=== PATIENT | female | born 1975 | race Caucasian/White ===

== ENCOUNTER 2018-09-13 10:05 | Emergency (ER) | payer MEDICARE ==
[~2018-09-13] VITALS: Ht 157.5 cm; Wt 63.5 kg
[2018-09-13] MEDS ORDERED: SODIUM CHLORIDE 0.9% 1000ML 1,000 ML IV STA (10:24)
[2018-09-13] MEDS ORDERED: KETOROLAC TROMETHAMINE 30 MG/ML VIAL IV STA (10:24)
[2018-09-13] MEDS ORDERED: DIPHENHYDRAMINE HCL INJ 50 MG/ML VIAL IV ONE (10:30)
[2018-09-13] MEDS ORDERED: CLONIDINE HCL 0.1 MG TAB PO ONE (10:30)
[2018-09-13] MEDS ORDERED: METOCLOPRAMIDE HCL 10 MG/2ML VIAL IV ONE (10:30)
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
[2018-09-13 11:58] LABS: BASOPHILS # (AUTO) 0.1 (0.0-0.1); BASOPHILS % 0.5 % (0.0-1.0); EOSINOPHILS # (AUTO) 0.1 (0.0-0.4); EOSINOPHILS % 0.5 % (0.0-6.0); HEMATOCRIT 37.5 % (34.2-44.1); HEMOGLOBIN 13.1 g/dL (12.0-16.0); LYMPHOCYTES # (AUTO) 3.3 (1.0-3.2); LYMPHOCYTES % 23.5 % (18.0-39.1); MEAN CORPUSCULAR HEMOGLOBIN 29.4 pg (28-32); MEAN CORPUSCULAR HGB CONC 34.9 g/dL (31-35); MEAN CORPUSCULAR VOLUME 84.1 fL (81-99); MONOCYTES # (AUTO) 0.8 (0.2-0.8); MONOCYTES % 5.7 % (4.4-11.3); NEUTROPHILS # (AUTO) 9.8 (2.1-6.9); NEUTROPHILS % 69.4 % (38.7-80.0); PLATELET COUNT 356 x10e3/uL (140-360); RED BLOOD COUNT 4.46 x10e6/uL (3.6-5.1); RED CELL DISTRIBUTION WIDTH 12.3 % (11.7-14.4)
[2018-09-13 12:06] LABS: PARTIAL THROMBOPLASTIN TIME 28.1 seconds (23.8-35.5)
[2018-09-13 12:10] LABS: INR 0.85; PROTHROMBIN TIME 12.4 seconds (11.9-14.5)
[2018-09-13 12:13] LABS: ALANINE AMINOTRANSFERASE 12 IU/L (0-55); ALBUMIN 4.3 g/dL (3.5-5.0); ALKALINE PHOSPHATASE 81 IU/L (40-150); BLOOD UREA NITROGEN 16 mg/dL (7-26); BUN/CREATININE RATIO 18 (6-25); CALCIUM 10.2 mg/dL (8.4-10.2); CARBON DIOXIDE 22 mmol/L (22-29); CHLORIDE 98 mmol/L (98-107); CREATINE KINASE 81 IU/L (29-168); CREATININE, SERUM 0.88 mg/dL (0.57-1.11); EST GLOMERULAR FILTRATION RATE > 60 ML/MIN (60-); GLUCOSE 106 mg/dL (74-118); MAGNESIUM 2.2 MG/DL (1.3-2.1); SODIUM 135 mmol/L (136-145)
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
[2018-09-13 12:32] LABS: THYROID STIMULATING HORMONE 1.661 uIU/mL (0.350-4.940)
[2018-09-13] MEDS ORDERED: POTASSIUM CHLORIDE 20 MEQ TAB CR PO NR (13:30)
[2018-09-13 13:53] LABS: AMPHETAMINES SCREEN,URINE NEGATIVE (NEGATIVE); BENZODIAZEPINES SCREEN,URINE NEGATIVE (NEGATIVE); PHENCYCLIDINE SCREEN,URINE NEGATIVE (NEGATIVE)
[2018-09-13 13:55] LABS: BILIRUBIN,URINE NEGATIVE (NEGATIVE); CLARITY,URINE CLEAR (CLEAR); COLOR,URINE YELLOW (YELLOW); KETONES,URINE NEGATIVE (NEGATIVE); LEUKOCYTE ESTERASE ,URINE NEGATIVE (NEGATIVE); NITRITE,URINE NEGATIVE (NEGATIVE); PROTEIN,URINE DIPSTICK 2+ (NEGATIVE); URINE UROBILINOGEN 0.2 mg/dL (0.2 - 1)
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
[2018-09-13 14:10] LABS: BACTERIA,URINE RARE /HPF; EPITHELIAL CELLS,URINE RARE /LPF; WBC,URINE (MAN) 0-5 /HPF (0-5)
[2018-09-13 16:14] VITALS: BP 125/88
== END 2018-09-13 15:54 | disposition home or self-care (01) ==
LOC: ER 10:05
DX: G43.719 Chronic migraine without aura, intractable, without status migrainosus (principal); E87.6 Hypokalemia; K52.9 Noninfective gastroenteritis and colitis, unspecified
CPT/HCPCS: 36415; 70450; 71045; 72125; 73030; 80053; 80307; 81001; 82550; 82553; 83735; 84443; 84484; 85025; 85610; 85730; 87086; 93005; 99284; J1200; J1885; J2765; J7030

== ENCOUNTER 2020-08-06 17:47 | Emergency (ER) | payer OTHER ==
[~2020-08-06] VITALS: Ht 157.5 cm; Wt 63.5 kg
[2020-08-06 18:35] LABS: BASOPHILS # (AUTO) 0.1 (0.0-0.1); BASOPHILS % 0.5 % (0.0-1.0); EOSINOPHILS % 0.3 % (0.0-6.0); HEMATOCRIT 35.4 % (34.2-44.1); HEMOGLOBIN 11.6 g/dL (12.0-16.0); LYMPHOCYTES # (AUTO) 2.8 (1.0-3.2); MEAN CORPUSCULAR HEMOGLOBIN 29.1 pg (28-32); MEAN CORPUSCULAR HGB CONC 32.8 g/dL (31-35); MEAN CORPUSCULAR VOLUME 88.9 fL (81-99); MONOCYTES # (AUTO) 0.7 (0.2-0.8); MONOCYTES % 4.6 % (4.4-11.3); NEUTROPHILS # (AUTO) 11.7 (2.1-6.9); PLATELET COUNT 515 x10e3/uL (140-360); RED BLOOD COUNT 3.98 x10e6/uL (3.6-5.1); RED CELL DISTRIBUTION WIDTH 13.4 % (11.7-14.4)
[2020-08-06 18:46] LABS: INR 0.92; PROTHROMBIN TIME 12.8 seconds (11.9-14.5)
[2020-08-06 18:47] LABS: PARTIAL THROMBOPLASTIN TIME 26.3 seconds (23.8-35.5)
[2020-08-06 18:53] LABS: ALBUMIN 4.5 g/dL (3.5-5.0); ALBUMIN/GLOBULIN RATIO 1.1 (0.8-2.0); ANION GAP 16.5 mmol/L (8-16); CALCIUM 10.2 mg/dL (8.4-10.2); CREATININE, SERUM 1.39 mg/dL (0.57-1.11); POTASSIUM 3.5 mmol/L (3.5-5.1)
[2020-08-06 19:02] LABS: CREATINE KINASE MB 4.5 ng/mL (0-5.0)
--- OUTSIDE RECORDS SUMMARY | 2020-08-06 19:25 | XMS REPORT | Clinical Summary ---
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 2 03/06/20 1 (TYLENOL WITH CODEINE #4) 7 300-60 mg per tablet Active atorvastatin (LIPITOR) 40 daily. 3 MG tablet 7 Active carisoprodol (SOMA) 350 as needed. 2 MG tablet 7 Active fluconazole (DIFLUCAN) as needed. 12 01 150 MG tablet 7 Active gabapentin (NEURONTIN) 2 (two) times 3 01 600 mg tablet a day. 7 Active ibuprofen (ADVIL,MOTRIN) as needed. 0 03/21 600 MG tablet 7 Active mupirocin (BACTROBAN) 2 % daily. 3 ointment 7 Active naproxen (NAPROSYN) 500 as needed. 5 MG tablet 7 Active predniSONE (DELTASONE) 5 2 (two) times 3 03/21 mg tablet a day. 7 Active sertraline (ZOLOFT) 50 MG daily. 3 tablet 7 Active SSD 1 % cream daily. 3 7 Active tiZANidine (ZANAFLEX) 4 as needed. 3 MG tablet 7 Active triamcinolone (KENALOG) daily. 3 0.1 % cream 7 Active triamterene-hydrochloroth as needed. 3 iazid (DYAZIDE) 37.5-25 7 mg per capsule Active Problems Problem Noted Date Right spastic hemiparesis 03/29/2017 Surgical History Surgery Date Site/Laterality Comments LEG SURGERY LUNG SURGERY CARDIAC SURGERY OTHER SURGICAL HISTORY reconstructive surgery ADENOIDECTOMY Medical History Medical History Date Comments Lupus (HCC) Cerebral palsy (HCC) Migraine Hypertension Family History Medical History Relation Name Comments Hypertension Father Hypertension Mother Relation Name Status Comments Father Mother Social History Date Tobacco Use Types Packs/Day Years Used Never Smoker Drinks/Week oz/Week Comments Alcohol Use No Sex Assigned at Date Recorded Not on file Last Filed Vital Signs Not on file Plan of Treatment Health Maintenance Due Date Last Done Comments CERVICAL CANCER SCREENING 1996 INFLUENZA VACCINE 04/19/2020 Results Not on fileafter 08/06/2019 Insurance Type Payer Benefit Subscriber ID Effective Phone Address Plan / Dates Group HMO [employer] CIGNA [id number] [id number] [employer] resent NG HMO MCR ADV HMO [facility] MEDICAID [facility] [id number] 2016-P [place] [employer]+ resent [facility] [address] Advance Directives For more information, please contact: [phone] 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
--- OUTSIDE RECORDS SUMMARY | 2020-08-06 19:25 | XMS REPORT | Continuity of Care Document ---
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 IMTIAZ CARRINGTON MD Report #: [id number] Location: ER Room/Bed: Procedure: [id number] CT/ CT BRAIN WO Exam Date: 09/13/18 Exam Time: 1035 REPORT STATUS: Signed CT BRAIN WO HISTORY: Headache COMPARISON: None. TECHNIQUE: Noncontrast axial scans were obtained from skull base to the vertex. Coronal and sagittal rec onstructions obtained from the axial data. One or more of the following dose reduction techniques were used: Automated exposure control, adjustment of the mA and/or kV according to patient size, and/or utilization of iterative recons truction technique. DISCUSSION: Scalp/Skull: Unremarkable. Brain sul ci: Appropriate for patient's age. Ventricles: Mild supratentorial ventriculom egaly is present. The temporal horns are not dilated. Extra-axial spaces: No masses or fluid collections. Parenchyma: The right cerebellar tons il extends up to 6 mm below the foramen magnum. No masses, hemorrhage, or larg e vascular territory acute infarct. Dural sinuses: No abnormal densities. Sellar/Suprasellar region: Intact. Skull base: Intact. 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 IMPRESSION: 1. Nonspecific mild supratentorial ventriculomegaly. 2. Otherwise, no acute intracranial abnormalities. 3. 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 Signed by: Dr. Yosi Mancini M.D. on 09/13/2018 11:54 AM Dictated By: YOSI MANCINI MD [id number] Transcribed By: SREEDHAR on 09/13/18 1158 COPY TO: IMTIAZ CARRINGTON MD
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
--- NOTE | 2020-08-06 20:58 | Diagnostic Imaging Report ---
Examination: CT BRAIN WO History:^N ^reported weakness to legs ^[id number] ^0 ^Y Comparison studies:Head CT dated 09/13/2018. Technique: Axial images were obtained from the skull base to the vertex. Coronal and sagittal images reconstructed from the axial data. Dose modulation, iterative reconstruction, and/or weight based adjustment of the mA/kV was utilized to reduce the radiation dose to as low as reasonably achievable. Intravenous contrast: None Findings: Scalp: No abnormalities. Bones: No fractures, blastic or lytic lesions. Brain sulci: Appropriate for age. Ventricles: Unchanged mild supratentorial ventriculomegaly is present. No hydrocephalus. Extra-axial space: No abnormalities. Parenchyma: No abnormal densities. No masses, hemorrhage, or acute or chronic cortical based vascular insults.. Sellar/suprasellar region: No abnormalities. Craniocervical junction: Unchanged right cerebellar tonsil extends up to 6 mm below the foramen magnum.. No Chiari one malformation. Incidental findings: None. Impression: No new or acute intracranial abnormalities when compared to prior head CT Dated 09/13/2018. Unchanged mild ventriculogmegaly and right cerebellar tonsillar ectopia. Signed by: Dr. Vanessa Pena M.D. on 08/06/2020 8:55 PM
[2020-08-06 21:34] LABS: BILIRUBIN,URINE NEGATIVE (NEGATIVE); CLARITY,URINE SL CLOUDY (CLEAR); COLOR,URINE YELLOW (YELLOW); KETONES,URINE NEGATIVE (NEGATIVE); LEUKOCYTE ESTERASE ,URINE NEGATIVE (NEGATIVE); NITRITE,URINE NEGATIVE (NEGATIVE); PROTEIN,URINE DIPSTICK 2+ (NEGATIVE); URINE UROBILINOGEN 0.2 mg/dL (0.2 - 1)
[2020-08-06 21:38] LABS: AMPHETAMINES SCREEN,URINE NEGATIVE (NEGATIVE); BENZODIAZEPINES SCREEN,URINE NEGATIVE (NEGATIVE); PHENCYCLIDINE SCREEN,URINE NEGATIVE (NEGATIVE)
[2020-08-06 21:44] LABS: BACTERIA,URINE RARE /HPF; EPITHELIAL CELLS,URINE FEW /LPF
[2020-08-06 22:31] VITALS: BP 130/82
== END 2020-08-06 22:41 | disposition home or self-care (01) ==
LOC: ER 18:44
DX: R52 Pain, unspecified (principal); G62.9 Polyneuropathy, unspecified; I10 Essential (primary) hypertension; G80.9 Cerebral palsy, unspecified; R94.31 Abnormal electrocardiogram [ECG] [EKG]
CPT/HCPCS: 36415; 70450; 80053; 80307; 81001; 82550; 82553; 84484; 85025; 85610; 85730; 93005; 99284